=== PATIENT | female | born 1965 | race Caucasian/White ===

== ENCOUNTER 2020-12-04 16:49 | Emergency (ER) | payer SELFPAY ==
[~2020-12-04 16:49] MED LIST: Iopamidol 370 76% 100 ML VIAL ONE
[2020-12-04 18:04] LABS: #Basophils 0.1 thou/uL (0.0-0.2); #Lymphocytes 0.7 thou/uL (1.20-3.40); #Monocytes 0.3 thou/uL (0.11-0.59); %Basophils 0.3 % (0.0-1.0); %Lymphocytes 4.1 % (21.0-51.0); %Monocytes 1.9 % (0.0-10.0); %Neutrophils 93.7 % (42.0-75.0); Hemoglobin 11.8 g/dL (12.0-16.0); Mean Corpuscular HGB CONC 33.6 g/dL (32.0-36.0); Mean Corpuscular Hemoglobin 33.5 pg (27.0-31.0); Mean Corpuscular Volume 99.8 fL (78.0-98.0); Mean Platelet Volume 7.7 fL (7.4-10.4); Platelet Count 241 thou/uL (130-400); RBC Distribution Width 11.9 % (11.5-14.5); Red Blood Cell (RBC) Count 3.53 mill/uL (4.20-5.40); White Blood Cell (WBC) Count 16.1 thou/uL (4.8-10.8)
[2020-12-04 18:07] LABS: Bilirubin Negative (Negative); Blood, Urine Negative (Negative); Glucose, Urine (Dipstick) Negative (Negative); Ketone, Urine 15 mg/dL (Negative); Leukocyte Negative (Negative); Nitrite Negative (Negative); Protein, Urine (Dipstick) Trace mg/dL (Neg-Trace); Urobilinogen 0.2 mg/dL (Less than 2); pH, Urine 6.5 (5.0-9.0)
[2020-12-04 18:08] LABS: Clarity Hazy (Clear)
[2020-12-04 18:21] LABS: ALT (SGPT) 18 U/L (8-55); AST (SGOT) 20 U/L (5-34); Albumin 4.2 g/dL (3.5-5.0); Alcohol Less than 10 mg/dL (Less than 10); Alkaline Phosphatase 147 U/L (40-110); Anion Gap 12 mmol/L (10-20); BUN (Urea Nitrogen) 13 mg/dL (9.8-20.1); Calc. Creatinine Clearance 0 mL/min (70-130); Calcium 9.4 mg/dL (7.8-10.44); Carbon Dioxide 22 mmol/L (22-29); Chloride 106 mmol/L (98-107); Globulin 2.9 g/dL (2.4-3.5); Glucose 132 mg/dL (70-105); Lipase 13 U/L (8-78); Potassium 3.2 mmol/L (3.5-5.1); Protein, Total 7.1 g/dL (6.0-8.3); Sodium 137 mmol/L (136-145)
[2020-12-04] MEDS ORDERED: Sodium Chloride 0.9% 100 ML ONE (19:34)
[2020-12-04] MEDS ORDERED: Sodium Chloride 0.9% 500 ML ONE (19:34)
[2020-12-04] MEDS ORDERED: Sodium Chloride 0.9% 1,000 ML ONE (19:34)
[2020-12-04] MEDS ORDERED: Piperacillin/Tazobactam 4.5 GM VIAL ONE (19:34)
[2020-12-04] MEDS ORDERED: Sodium Chloride 0.9% 250 ML 250 ML ONE (19:35)
[2020-12-04] MEDS ORDERED: Morphine 4 MG/ML VIAL ONE (20:05)
[2020-12-04] MEDS ORDERED: Prochlorperazine 10 MG/2 ML VIAL ONE (20:06)
[2020-12-04] MEDS ORDERED: Acetaminophen 500 MG TAB ONE (20:33)
== END 2020-12-04 20:35 | disposition short-term general hospital (02) ==
LOC: MADERS 16:49
DX: A41.9 Sepsis, unspecified organism (principal); R11.2 Nausea with vomiting, unspecified; F17.210 Nicotine dependence, cigarettes, uncomplicated; Z79.891 Long term (current) use of opiate analgesic; Z79.899 Other long term (current) drug therapy
CPT/HCPCS: 36415; 74177; 80053; 80307; 81003; 83605; 83690; 85025; 87040; J0780; J2270; J2543; J3370; J3490; J7030; J7050; Q9967

== ENCOUNTER 2022-04-04 15:51 | Emergency (ER) | payer SELFPAY ==
[2022-04-04 17:46] LABS: ALT (SGPT) 61 U/L (8-55); AST (SGOT) 140 U/L (5-34); Albumin 2.1 g/dL (3.5-5.0); Alkaline Phosphatase 229 U/L (40-110); Anion Gap 17 mmol/L (10-20); BUN (Urea Nitrogen) 18 mg/dL (9.8-20.1); Bilirubin, Total 0.7 mg/dL (0.2-1.2); Calc. Creatinine Clearance 0 mL/min (70-130); Calcium 7.8 mg/dL (7.8-10.44); Carbon Dioxide 22 mmol/L (22-29); Chloride 98 mmol/L (98-107); Estimated GFR 47; Globulin 2.3 g/dL (2.4-3.5); Glucose 88 mg/dL (70-105); Lipase 9 U/L (8-78); Potassium 3.5 mmol/L (3.5-5.1); Protein, Total 4.4 g/dL (6.0-8.3); Sodium 133 mmol/L (136-145)
[2022-04-04 17:55] LABS: Hemoglobin 10.7 g/dL (12.0-16.0); Mean Corpuscular Hemoglobin 34.8 pg (27.0-31.0); Mean Corpuscular Volume 108.8 fL (78.0-98.0); Platelet Count 221 thou/uL (130-400); RBC Distribution Width 14.7 % (11.5-14.5); Red Blood Cell (RBC) Count 3.06 mill/uL (4.20-5.40)
[2022-04-04 18:27] LABS: #Basophils 0.1 thou/uL (0.0-0.2); #Monocytes 0.3 thou/uL (0.11-0.59); #Neutrophils 3.6 thou/uL (1.40-6.50); %Basophils 1.1 % (0.0-1.0); %Eosinophils 0.2 % (0.0-10.0); %Lymphocytes 32.8 % (21.0-51.0); %Monocytes 5.7 % (0.0-10.0); %Neutrophils 60.2 % (42.0-75.0); Hypochromia SLIGHT = 6-15 cells (100X) (0-5/hpf); MDiff Complete? YES; Macrocytosis SLIGHT = 6-15 cells (100X) (0-5/hpf); Platelet Morphology Comment Appears Adequate; Stomatocytes SLIGHT = 2-5 cells (100X) (0-1/hpf)
[2022-04-04 18:31] LABS: Bilirubin Negative (Negative); Blood, Urine Trace (Negative); Clarity Cloudy (Clear); Glucose, Urine (Dipstick) Negative (Negative); Ketone, Urine Negative (Negative); Leukocyte Moderate (Negative); Nitrite Negative (Negative); Protein, Urine (Dipstick) Negative (Neg-Trace); Urobilinogen 0.2 mg/dL (Less than 2); pH, Urine 5.5 (5.0-9.0)
[2022-04-04 18:53] LABS: Bacteria/HPF 4+ HPF (None Seen); RBC/HPF 0-3 HPF (0-3); WBC/HPF Greater Than 50 HPF (0-3)
[2022-04-04] MEDS ORDERED: Sodium Chloride 0.9% 1,000 ML ONE (19:09)
[2022-04-04] MEDS ORDERED: Sodium Chloride 0.9% 100 ML ONE (19:09)
[2022-04-04] MEDS ORDERED: cefTRIAXone\\ROCEPHIN 1 GM VIAL ONE (19:09)
== END 2022-04-04 19:28 | disposition home or self-care (01) ==
LOC: MADERS 15:51
DX: E86.0 Dehydration (principal); R79.89 Other specified abnormal findings of blood chemistry; N39.0 Urinary tract infection, site not specified; F17.210 Nicotine dependence, cigarettes, uncomplicated
CPT/HCPCS: 71045; 80053; 81003; 81015; 83605; 83690; 84443; 84484; 85025; 87077; 87086; 87186; 93005; 94760; 96365; J0696; J3490; J7050